=== PATIENT | female | born 1985 | race Caucasian/White ===

== ENCOUNTER 2018-01-31 14:08 | Outpatient (CLI) | payer BC | END 2018-01-31 14:09 | disposition home or self-care (01) | LOC: BICMRI 14:08 | PROVIDERS: ATTEND Orthopaedic Surgery | DX: M25.561 Pain in right knee (principal); M23.51 Chronic instability of knee, right knee; R60.9 Edema, unspecified ==

== ENCOUNTER 2019-04-08 07:02 | Outpatient (CLI) | payer BC ==
--- NOTE | 2019-04-08 11:09 | MRI ---
MRI LEFT KNEE WITHOUT CONTRAST: Date: 04/08/19 INDICATION: Left internal knee derangement; injury playing volleyball 5 weeks ago with left knee pain and swellin g. COMPARISON: None. FINDINGS: There is a subchondral impaction fracture of the lateral femoral condyle best seen on image 23 of ser ies 8 with minimal articular surface depression. There is surrounding marrow edema within the lateral femoral condyle. There is increased T2 signal seen predominantly in the periphery of the medial meniscus can be relate d to peripheral vascularity; however, contusion within the meniscus could have a similar appearance. No definite medial meniscal tear is present. The lateral meniscus is intact. The MCL and LCLC are intact. The extensor mechanism is intact. There is poor visualization of proximal fibers of the ACL on image 17 of series 6, and image 19 of se franck 8, with some surrounding increased T2 signal. No definite full discontinuity is seen involving t he ACL ligament on the axial images. The PCL is intact. No popliteal cyst is identified. There is mild suspected chondrosis involving the lateral patellar facet without evidence of a full th ickness defect. Articular cartilage of the femorotibial compartments other than within the lateral fe moral condyle appear normal. IMPRESSION: 1. Poor visualization of anterior fibers of the proximal ACL on the coronal and sagittal images, but without definite evidence of full discontinuity of the ligament on the axial images raises suspicion for a partial thickness ACL tear. Recommend correlation with the clinical exam for ACL insufficiency . A complete tear of the proximal ACL cannot be entirely excluded based on the provided images. 2. Subchondral impaction fracture of the lateral femoral condyle with mild surrounding edema. There is minimal articular surface depression. 3. Increased T2 signal seen within the peripheral aspect of the posterior junction/posterior horn of the medial meniscus may reflect vascularity of the meniscus or possibly a contusion. No discrete men iscal tear is evident. The lateral meniscus is intact. 4. Mild chondrosis of the lateral patellar facet. 5. The MCL, PCL, and LCLC are intact. POS: TPC
== END 2019-04-08 07:03 | disposition home or self-care (01) ==
LOC: SCSMRI 07:02
PROVIDERS: ATTEND Family Medicine
DX: M23.92 Unspecified internal derangement of left knee (principal); S72.422A Displaced fracture of lateral condyle of left femur, initial encounter for closed fracture; R60.0 Localized edema; R93.7 Abnormal findings on diagnostic imaging of other parts of musculoskeletal system; M94.8X6 Other specified disorders of cartilage, lower leg

== ENCOUNTER 2019-06-25 05:52 | Observation (INO) | payer BC ==
[2019-06-25] MEDS ORDERED: ceFAZolin Sodium (SDC) 2 GM/100 ML BAG ONE (06:29)
[2019-06-25] MEDS ORDERED: Fentanyl 100 MCG/2 ML VIAL ONE ×2 (06:39→07:34)
[2019-06-25] MEDS ORDERED: Midazolam HCl 2 mg/2 ml Vial ONE (06:39)
[2019-06-25] MEDS ORDERED: traMADol HCl 50 MG TAB PO PRN ×2 (08:31)
[2019-06-25] MEDS ORDERED: Zolpidem Tartrate 5 MG TAB PO PRN (08:31)
[2019-06-25] MEDS ORDERED: Ondansetron PF 4 MG/2 ML Vial IVP PRN (08:31)
[2019-06-25] MEDS ORDERED: Ropivacaine 0.2% 550 ML 550 ML NERVE BLCK SCH (08:31)
[2019-06-25] MEDS ORDERED: Promethazine HCl 25 MG/ML VIAL IM PRN ×2 (08:31→09:38)
[2019-06-25] MEDS ORDERED: HYDROcodone/Acetaminophen 10/325 mg Tablet PO PRN (08:31)
[2019-06-25] MEDS ORDERED: Fentanyl 100 MCG/2 ML VIAL IV PRN (08:32)
[2019-06-25] MEDS ORDERED: Bisacodyl 10 MG SUPP PR PRN (09:10)
[2019-06-25] MEDS ORDERED: Morphine 2 MG/ML SYRINGE SLOW IVP PRN (09:10)
[2019-06-25] MEDS ORDERED: Milk Of Magnesia 30 ML UDCUP PO PRN (09:10)
[2019-06-25] MEDS ORDERED: Acetaminophen 500 MG TAB PO PRN (09:10)
[2019-06-25] MEDS ORDERED: Methocarbamol 500 MG TAB PO PRN (09:10)
[2019-06-25] MEDS ORDERED: diphenhydrAMINE 50 MG CAP PO PRN (09:10)
[2019-06-25] MEDS ORDERED: HYDROcodone/Acetaminophen 7.5/325 mg Tablet PO PRN ×2 (09:10)
[2019-06-25] MEDS ORDERED: Morphine 4 MG/ML VIAL SLOW IVP PRN (09:10)
[2019-06-25] MEDS ORDERED: Ondansetron HCl/PF 4 MG/2 ML Vial IVP PRN (09:38)
[2019-06-25] MEDS ORDERED: Promethazine HCl 25 MG/ML VIAL SLOW IVP PRN (09:38)
[2019-06-25] MEDS ORDERED: Promethazine HCl 25 MG/ML VIAL ONE (09:43)
[2019-06-25] MEDS ORDERED: Scopolamine 1.5 mg/72 hour Patch ONE (10:01)
[2019-06-25] MEDS ORDERED: Scopolamine 1.5 mg/72 hour Patch TOP SCH (10:15)
--- NOTE | 2019-06-25 10:30 | OP ---
DATE OF PROCEDURE: 06/25/2019 PREOPERATIVE DIAGNOSIS: Left knee anterior cruciate ligament tear with lateral meniscal tear. POSTOPERATIVE DIAGNOSIS: Left knee anterior cruciate ligament tear with lateral meniscal tear. PROCEDURES PERFORMED: 1. Left knee exam under anesthesia. 2. Left knee arthroscopy with arthroscopically-assisted anterior cruciate ligament reconstruction using autologous patellar tendon graft. 3. Partial lateral meniscectomy. COMMUNICATIONS SENIOR ASSOCIATE: Minh Alcocer PA-C ESTIMATED BLOOD LOSS: Minimal. COMPLICATIONS: None. ANESTHESIA: She had general anesthetic. She also had a preoperative block. IMPLANTS: To the left knee, a 7 x 25 metal interference screw on the femur and bicortical screw with a smooth washer on the tibia as opposed. DISPOSITION: To recovery room in stable condition. INDICATIONS: This is a 34-year-old female, who injured her knee while playing athletics and at this time wished to have her knee reconstructed. DESCRIPTION OF PROCEDURE: After all appropriate consent forms were explained and signed, she was taken to the operative room and at this time was given general anesthetic. Once the level of anesthesia was appropriate, once exam under anesthesia confirmed a positive Yifan and positive pivot shift, the tourniquet was placed on the left thigh and the leg was then prepped and draped in standard surgical fashion after placing an arthroscopic leg nogueira. The limb was exsanguinated and tourniquet taken to 250 mmHg. Midline incision was made with 10 blade down through the skin. Bovie was used to clear any brisk venous bleeding. New blade was then used to take the paratenon off the underlying patellar tendon. Central third patellar tendon graft was then harvested using the saw osteotome and a double 10 blade. Once this was done, taken to the back table and made so the femoral plug was size 9, tibial plug was size 10. Graft site was loosely closed using multiple interrupted Vicryl. Inferolateral portal was established. Scope was placed into the knee joint. Needle localization technique was then used to make a medial working portal. Diagnostic arthroscopy commenced in the notch. ACL was found to be torn. The PCL was intact. The medial compartment was intact. The lateral compartment showed some fissures in the lateral tibial plateau. There was a small radial tear in the body of the lateral meniscus. Partial lateral meniscectomy was performed using meniscal biter and shaver. Minimal meniscus had to be resected. Gutters were clean. The patellofemoral joint was found to be in good condition. Again, there were some fissures in the patella, but no loose cartilage. At this time, notchplasty was performed. We then flexed the knee up into the medial portal, placed an [id number] guide and ran a pin up and out the anterolateral thigh. A 9-mm reamer was then used to ream our tunnel to a depth of 30. All loose bony cartilaginous debris was removed from the knee joint at this time. The tibial guide set at 55 degrees was then placed into the knee and a pin was placed into the knee joint. A 10-mm reamer was used to ream our tibial tunnel. All edges were smoothed off with a rasp and leticia. Any soft tissue was removed at this time. Once this was done, we then went dry. We flexed the knee up again. We placed a pin up and out the anterolateral thigh using this to pull our passing suture up into the knee joint. This was pulled down the tibial tunnel and used to pull our graft into place. Secondary to the length of the tendon, which was much longer than normal , the femoral plug was pulled up into the femoral socket approximately 3 to 4 mm and we then fixated the femoral plug using a 7 x 25 metal interference screw in standard fashion. Our tibial plug was long on the tibial side by a little bit, so we took the leticia and elongated our tibial tunnel, so that we could recess our plug into the bone channel. Once this was done, we drilled, tapped, and placed a bicortical screw with a smooth washer and tied our strings around this as opposed with the knee in full extension and posterior drawer being applied. At this time, the knee was taken through full range of motion and was found to have nearly 5 degrees of hyperextension and full flexion with no impingement of the graft on the PCL or in the notch itself. The scope was removed. Knee was drained. At this time, the tibial and patellar defect sites were bone grafted and we then ran a Vicryl to close our paratenon layer, 2-0 Vicryl and a running Stratafix to close the skin. Surgicel skin glue was used on top. Once this dried, a bulky sterile dressing was applied. She was awakened and taken to recovery room in stable condition. All counts were correct at the end of the case. She did receive preoperative IV antibiotics. Job ID: [id number] MTDD
[2019-06-25] MEDS ORDERED: Ketorolac Tromethamine 30 MG/ML VIAL IVP SCH ×2 (12:00→16:30)
[2019-06-25] MEDS ORDERED: Sodium Chloride 0.9% 10 ML ONE (13:18)
[2019-06-25] MEDS: Dextrose 5 %-0.45 % NaCl 1,000 ML IV SCH ×2 (16:24→20:12)
[2019-06-25] MEDS: CEFAZOLIN 2 GM, Admixture Fee 1 EACH in Sodium Chloride 0.9% 100 ML IVPB SCH (17:01)
[2019-06-25] MEDS: Ketorolac Tromethamine 30 MG/ML VIAL IVP SCH (20:11)
[2019-06-25] MEDS: Famotidine 20 MG TAB PO SCH (20:11)
[2019-06-26] MEDS: CEFAZOLIN 2 GM, Admixture Fee 1 EACH in Sodium Chloride 0.9% 100 ML IVPB SCH (00:06)
[2019-06-26] MEDS: HYDROcodone/Acetaminophen 10/325 mg Tablet PO PRN ×2 (00:08→08:59)
[2019-06-26] MEDS: Ketorolac Tromethamine 30 MG/ML VIAL IVP SCH ×2 (03:17→08:04)
[2019-06-26] MEDS: Dextrose 5 %-0.45 % NaCl 1,000 ML IV SCH (06:00)
[2019-06-26 07:45] VITALS: BP 97/64; TEMP 98.4
[2019-06-26] MEDS: Famotidine 20 MG TAB PO SCH (08:04)
[2019-06-26] MEDS ORDERED: NORGEST PO SCH (09:00)
[2019-06-26] MEDS ORDERED: Multivitamin W/ Minerals 1 TAB PO SCH (09:00)
[2019-06-26] MEDS ORDERED: E ESTRADIOL E ESTRAD PO SCH (09:00)
== END 2019-06-26 09:55 | disposition home or self-care (01) ==
LOC: SDC 05:52 → SURG A 09:10
PROVIDERS: ADMIT Orthopaedic Surgery; ATTEND Orthopaedic Surgery
PROC: 0MQP4ZZ Repair Left Knee Bursa and Ligament, Percutaneous Endoscopic Approach (ICD-10-PCS; principal; 2019-06-26)
PROC: 0SBD4ZZ Excision of Left Knee Joint, Percutaneous Endoscopic Approach (ICD-10-PCS; 2019-06-26)
DX: S83.512A Sprain of anterior cruciate ligament of left knee, initial encounter (principal); S83.282A Other tear of lateral meniscus, current injury, left knee, initial encounter; Z88.2 Allergy status to sulfonamides
CPT/HCPCS: 96365; 96366; 96375; 96376; A4306; C1713; G0378; J0690; J1885; J2250; J2550; J2795; J3010; J3490

== ENCOUNTER 2022-07-14 08:28 | Outpatient (CLI) | payer BC | END 2022-07-14 08:29 | disposition home or self-care (01) | LOC: BICMAMMO 08:28 | PROVIDERS: ATTEND Advanced Practice Midwife | DX: N64.3 Galactorrhea not associated with childbirth (principal) | CPT/HCPCS: 77066; G0279 ==

== ENCOUNTER 2022-09-18 08:51 | Outpatient (CLI) | payer BC ==
[2022-09-18 10:14] LABS: BHCG - Serum Negative (NEGATIVE); Pregs Control Background? CLEAR/WHITE (CLR/WHITE); Pregs Control Bar Appear? YES (CONTROL BAR)
[2022-09-18] MEDS ORDERED: Magnevist 469MG/ML 20 ML VIAL ONE (14:37)
== END 2022-09-18 08:52 | disposition home or self-care (01) ==
LOC: MRI 08:51
PROVIDERS: ATTEND Student in an Organized Health Care Education/Training Program
DX: Z32.00 Encounter for pregnancy test, result unknown (principal); R89.1 Abnormal level of hormones in specimens from other organs, systems and tissues
CPT/HCPCS: 70553; 84703; A9579

== ENCOUNTER 2025-06-25 16:04 | Outpatient (CLI) | payer BC | END 2025-06-25 16:05 | disposition home or self-care (01) | LOC: SCSRAD 16:04 | PROVIDERS: ATTEND Family Medicine | DX: M25.531 Pain in right wrist (principal) ==

== ENCOUNTER 2025-07-27 13:54 | Outpatient (CLI) | payer BC | END 2025-07-27 13:55 | disposition home or self-care (01) | LOC: BICMRI 13:54 | PROVIDERS: ATTEND Family Medicine | DX: M25.531 Pain in right wrist (principal); M65.4 Radial styloid tenosynovitis [de Quervain] ==